=== PATIENT | male | born 1940 | race Caucasian/White ===

== ENCOUNTER 2023-06-25 09:28 | Outpatient (CLI) | payer BC, SELFPAY ==
[2023-06-25 10:39] LABS: Blood Urea Nitrogen 18 mg/dl (9-20); Estimated Glomerular Filt Rate 72 ml/min (>60); GFR (African American) 87 ML/MIN (>60)
== END 2023-06-25 23:59 ==
LOC: RAD 09:29
PROVIDERS: PCP Internal Medicine; Visit Provider Nurse Practitioner Family
DX: R06.02 Shortness of breath (principal); U09.9 Post COVID-19 condition, unspecified
CPT/HCPCS: 36415; 82565; 84520